=== PATIENT | male | born 1980 ===

== ENCOUNTER 2018-07-03 08:41 | Emergency (ER) | payer BC ==
--- NOTE | 2018-07-03 09:12 | EDM.PDOC ---
ED HPI GENERAL MEDICAL PROBLEM - General Chief Complaint: General Stated Complaint: COLD Time Seen by Provider: 07/03/18 08:53 - History of Present Illness INITIAL COMMENTS - FREE TEXT/NARRATIVE: HISTORY AND PHYSICAL: History of present illness: Patient 38-year-old male presents a concern of lingual lesions that he's had intermittently since childhood these most likely viral ulcers. Patient stated [place] self-limited capacities here at the request of his . Fever chills nausea vomiting or other complaints patient's neck smoker he denies chewing tobacco Review of systems: As per history of present illness and below otherwise all systems reviewed and negative. Past medical history: As per history of present illness and as reviewed below otherwise noncontributory. Surgical history: As per history of present illness and as reviewed below otherwise noncontributory. Social history: No reported history of drug or alcohol abuse. Family history: As per history of present illness and as reviewed below otherwise noncontributory. Physical exam: HEENT: Atraumatic, normocephalic, pupils reactive, negative for conjunctival pallor or scleral icterus, mucous membranes moist, throat clear, neck supple, nontender, trachea midline. Patient noted to aphthous type ulcers to his right tongue patient states this is the exact location and type that he's had since childhood intermittently. Lungs: Clear to auscultation, breath sounds equal bilaterally, chest nontender. Heart: S1S2, regular, negative for clicks, rubs, or JVD. Abdomen: Soft, nondistended, nontender. Negative for masses or hepatosplenomegaly. Negative for costovertebral tenderness. Pelvis: Stable nontender. Genitourinary: Deferred. Rectal: Deferred. Extremities: Atraumatic, negative for cords or calf pain. Neurovascular unremarkable. Neuro: Awake, alert, oriented. Cranial nerves II through XII unremarkable. Cerebellum unremarkable. Motor and sensory unremarkable throughout. Exam nonfocal. Diagnostics: None Therapeutics: None Impression: #1 lingual ulcers probable viral etiology Definitive disposition and diagnosis as appropriate pending reevaluation and review of above. Oral/Mouth Pain Score (Numeric/FACES): 8 - Related Data Allergies Allergy/AdvReac Type Severity Reaction Status Date / Time No Known Allergies Allergy Verified 07/03/18 09:03 Home Meds: Home Meds valACYclovir HCl [valACYclovir] 1,000 mg PO TID #21 tablet 04/16/18 [Rx] Past Medical History - Past Health History Medical/Surgical History: Denies Medical/Surgical History Social & Family History - Family History Family Medical History: Noncontributory ED ROS GENERAL - Review of Systems Review Of Systems: ROS reveals no pertinent complaints other than HPI. ED EXAM, GENERAL - Physical Exam Exam: See Below (See dictation) Course - Vital Signs Last Recorded V/S: Last Vital Signs Temp 35.6 C 07/03/18 08:56 Pulse 60 07/03/18 08:56 Resp 18 07/03/18 08:56 BP 183/124 H 07/03/18 08:56 Pulse Ox 96 07/03/18 08:56 Departure - Departure Time of Disposition: 09:12 Disposition: Home, Self-Care 01 Condition: Good Clinical Impression: Aphthous ulcer of mouth - Discharge Information Referrals: PCP,None [Primary Care Provider] - Additional Instructions: The following information is given to patients seen in the emergency department who are being discharged to home. This information is to outline your options for follow-up care. We provide all patients seen in our emergency department with a follow-up referral. The need for follow-up, as well as the timing and circumstances, are variable depending upon the specifics of your emergency department visit. If you don't have a primary care physician on staff, we will provide you with a referral. We always advise you to contact your personal physician following an emergency department visit to inform them of the circumstance of the visit and for follow-up with them and/or the need for any referrals to a consulting specialist. The emergency department will also refer you to a specialist when appropriate. This referral assures that you have the opportunity for followup care with a specialist. All of these measure are taken in an effort to provide you with optimal care, which includes your followup. Under all circumstances we always encourage you to contact your private physician who remains a resource for coordinating your care. When calling for followup care, please make the office aware that this follow-up is from your recent emergency room visit. If for any reason you are refused follow-up, please contact the emergency department at and asked to speak to the emergency department charge nurse. [facility] [address] [place] [id number] John Medrano DDS [facility] [phone] [place] [address] Follow-up oral surgery and primary care as needed as discussed return as needed as discussed
== END 2018-07-03 09:38 | disposition home or self-care (01) ==
LOC: MW.ED 08:41
DX: K12.0 Recurrent oral aphthae (principal)
CPT/HCPCS: 99282